=== PATIENT | female | born 1930 | race Hispanic/Latino ===

== ENCOUNTER 2018-11-15 14:16 | Emergency (ER) | payer MEDICARE ==
[~2018-11-15] VITALS: Ht 149.9 cm; Wt 52.2 kg
--- OUTSIDE RECORDS SUMMARY | 2018-11-15 14:18 | XMS REPORT | Clinical Summary ---
Author Author [facility] Address Unknown Phone Unavailable Care Team Providers Care Wrapper Sizer Name Role Phone Silvia Iqbal MD PCP Allergies Comments Active Allergy Reactions Severity Noted Date Bradycardia Atenolol 03/04/2018 vomiting Codeine 03/04/2018 [place] arm per pt Emollient Combination 03/04/2018 No.33 Triamcinolone Acetonide 03/04/2018 Medications End Date Status Medication Sig Dispensed Refills Start Date Active amLODIPine (NORVASC) 10 Take 10 mg by 0 mg tablet mouth daily. Active carvedilol (COREG) 6.25 Take 6.25 mg 0 MG tablet by mouth 2 (two) times a day with meals. Active cycloSPORINE (RESTASIS) 1 drop 2 0 0.05 % ophthalmic (two) times a emulsion day. Active glimepiride (AMARYL) 1 MG Take 1 mg by 0 tablet mouth daily before breakfast. Active levothyroxine (SYNTHROID, Take 25 mcg 0 LEVOXYL) 25 mcg tablet by mouth every morning. Active ramipril (ALTACE) 10 MG Take 10 mg by 0 capsule mouth daily. Active simvastatin (ZOCOR) 20 MG Take 20 mg by 0 tablet mouth nightly. Active acetaminophen (TYLENOL 8 Take 650 mg 0 HOUR) 650 MG 8 hr tablet by mouth every 8 (eight) hours as needed for mild pain. Active cholecalciferol, vitamin Take by mouth 0 D3, (VITAMIN D3) 2,000 daily. unit capsule capsule Active Problems Not on file Encounters Care Team Description Date Type Specialty [place] MD Acute renal failure, unspecified acute renal failure type (HCC) (Primary Dx); Hyperkalemia 03/04/2018 Emergency Emergency Medicine after 11/14/2017 Social History Date Tobacco Use Types Packs/Day Years Used Never Smoker Smokeless Tobacco: Never Used Alcohol Use Drinks/Week oz/Week Comments No Alcohol Habits Answer Date Recorded How often do you have a drink containing alcohol? Never 03/04/2018 How many drinks containing alcohol do you have on Not asked a typical day when you are drinking? How often do you have six or more drinks on one Not asked occasion? Sex Assigned at Date Recorded Not on file Industry Job Start Date Occupation Not on file Not on file Not on file Travel End Travel History Travel Start No recent travel history available. Last Filed Vital Signs Time Taken Vital Sign Reading 03/04/2018 8:00 PM [facility] Blood Pressure 178/72 03/04/2018 8:00 PM [facility] Pulse 57 03/04/2018 6:22 PM [facility] Temperature 37 C (98.6 F) 03/04/2018 8:00 PM [facility] Respiratory Rate 28 03/04/2018 8:00 PM [facility] Oxygen Saturation 97% - Inhaled Oxygen - Concentration 03/04/2018 6:21 PM [facility] Weight 54 kg (119 lb) 03/04/2018 6:21 PM [facility] Height 149.9 cm (4' 11") 03/04/2018 6:21 PM [facility] Body Mass Index 24.04 Plan of Treatment Not on file Procedures Comments Procedure Name Priority Date/Time Associated Diagnosis ESTIMATED GFR STAT 03/04/2018 6:35 PM [facility] BASIC METABOLIC PANEL STAT 03/04/2018 6:35 PM [facility] HC COMPLETE BLD COUNT STAT 03/04/2018 W/AUTO DIFF 6:35 PM [facility] after 11/14/2017 Results * Estimated GFR (03/04/2018 6:35 PM [facility]) Estimated GFR 45 (A) mL/min/1.73 m2 [place] Comment: ISLAM [facility] rpretation G1 >=90 Normal or high G2 60-89Mildly decreased [id number] Mildly to moderately decreased [id number] Moderately to severely decreased G4 15-29Severely decreased G5 <15Kidney failure The eGFR was calculated using the Chronic Kidney Disease Epidemiology Collaboration (CKD-EPI) equation. Interpretation is based on recommendations of the National Kidney Foundation-Kidney Disease Outcomes Quality Initiative (NKF-KDOQI) published in 2014. Specimen Plasma specimen Performing Organization Address City/State/Zipcode Phone Number [facility] [address] [place] [address] PATHOLOGY AND GENOMIC MEDICINE [address] * CBC with platelet and differential (03/04/2018 6:35 PM [facility]) Pathologist [facility] WBC 8.83 4.50 - 11.00 k/uL [facility] RBC 3.61 (L) 4.20 - 5.50 m/uL [facility] HGB 10.8 (L) 12.0 - 16.0 g/dL [facility] HCT 32.9 (L) 37.0 - 47.0 % [facility] MCV 91.1 82.0 - 100.0 fL [facility] MCH 29.9 27.0 - 34.0 pg [facility] MCHC 32.8 31.0 - 37.0 g/dL [facility] RDW - SD 46.8 37.0 - 55.0 fL [facility] MPV 10.7 8.8 - 13.2 fL [facility] Platelet count 289 150 - 400 k/uL [facility] Nucleated RBC 0.00 /100 WBC [facility] Neutrophils 67.7 39.0 - 69.0 % [facility] Lymphocytes 20.2 (L) 25.0 - 45.0 % [facility] Monocytes 7.8 0.0 - 10.0 % [facility] Eosinophils 3.5 0.0 - 5.0 % [facility] Basophils 0.6 0.0 - 1.0 % [facility] Specimen Blood Performing Organization Address City/[facility]/Zipcode Phone Number [address] [place] [address] PATHOLOGY AND GENOMIC MEDICINE [address] * Basic metabolic panel (03/04/2018 6:35 PM [facility]) [facility] Sodium 141 135 - 148 mEq/L [facility] Potassium 5.2 (H) 3.5 - 5.0 mEq/L [facility] Chloride 108 98 - 112 mEq/L [facility] CO2 20 (L) 24 - 31 mEq/L [facility] Anion gap 13@ANIO 7 - 15 mEq/L [facility] BUN 30 (H) 8 - 23 mg/dL [facility] Creatinine 1.10 (H) 0.50 - 0.90 mg/dL [facility] Glucose 113 (H) 65 - 99 mg/dL [facility] Calcium 9.3 8.8 - 10.2 mg/dL [facility] Specimen Plasma specimen Performing Organization Address City/State/Zipcode [place] [address] [place] [address] PATHOLOGY AND GENOMIC MEDICINE [facility] [address] [place] [address] [facility] after 11/14/2017 Insurance Type Payer Benefit Subscriber ID Effective Phone Address Plan / Dates Group [facility]-P ADVANTAGE resent [facility] Advance Directives Patient has advance care planning documents on file. For more information, brittany cadet contact: [facility] [address] [place] [address]
[2018-11-15 14:44] VITALS: BP 172/65
--- NOTE | 2018-11-15 15:25 | Diagnostic Imaging Report ---
RIGHT TOE'S X-RAY - 3 VIEWS HISTORY: ^[id number] ^[id number] COMPARISON: None available. FINDINGS: Bones: No acute displaced fracture. Osseous alignment is within normal limits. Joints: The joint spaces are well-maintained. Soft tissues: Small laceration within the right distal first toe with adjacent linear 7 mm radiopaque foreign body. IMPRESSION: Small laceration in the distal right first toe with adjacent linear radiopaque foreign body, likely a piece of glass. Signed by: Dr. Naz Chew M.D. on 11/15/2018 3:22 PM
== END 2018-11-15 16:18 | disposition home or self-care (01) ==
LOC: FSED 14:16
DX: S91.121A Laceration with foreign body of right great toe without damage to nail, initial encounter (principal); W25.XXXA Contact with sharp glass, initial encounter; Y92.512 Supermarket, store or market as the place of occurrence of the external cause; I10 Essential (primary) hypertension; E11.9 Type 2 diabetes mellitus without complications
CPT/HCPCS: 99283